=== PATIENT | female | born 1935 | race African-American/Black ===

== ENCOUNTER 2017-05-26 15:12 | Inpatient (IN) | payer MEDICARE, MEDICAID ==
[~2017-05-26] VITALS: Ht 165.1 cm; Wt 75.7 kg
[2017-05-26] MEDS ORDERED: LEVE500T19 PO (15:17)
[2017-05-26] MEDS ORDERED: KEPP500 PO (15:17)
[2017-05-26] MEDS ORDERED: METF500T4 PO (15:17)
[2017-05-26] MEDS ORDERED: CARV3.1242 PO (15:17)
[2017-05-26] MEDS ORDERED: HYDR12.529 PO (15:17)
[2017-05-26] MEDS ORDERED: AMLO10TA80 PO (15:17)
[2017-05-26 16:22] LABS: BASOPHILS % 0.8 % (0.0-2.0); EOSINOPHILS % 3.2 % (0.0-5.0); HEMATOCRIT. 27.6 % (36.0-48.0); HEMOGLOBIN. 8.8 g/dL (12.0-16.0); LYMPHOCYTES % 20.1 % (20.0-50.0); MEAN CORPUSCULAR VOLUME 78.1 fL (81.0-99.0); MEAN PLATELET VOLUME 7.5 fl (7.4-10.4); MONOCYTES % 5.4 % (2.0-8.0); NEUTROPHILS % 70.5 % (40.0-76.0); PLATELET 246 x1000/uL (130-400); RED BLOOD CELL COUNT 3.53 mill/uL (4.2-5.4)
[2017-05-26 16:27] LABS: CHLORIDE 112 mEq/L (98-107); INR 1.1; PROTHROMBIN TIME 11.9 sec (9.4-11.6)
[2017-05-26 16:33] LABS: CARBON DIOXIDE 26 mEq/L (21-32); ETHANOL BLOOD < 10 mg/dL
[2017-05-26 16:36] LABS: TROPONIN I < 0.02 ng/mL (0.00-0.04)
[2017-05-26 18:00] LABS: CLARITY URINE CLEAR (CLEAR); COLOR URINE YELLOW (YELLOW); GLUCOSE URINE NEGATIVE (NEGATIVE); KETONES URINE NEGATIVE (NEGATIVE); LEUKOCYTE ESTERASE URINE NEGATIVE (NEGATIVE); NITRITE URINE POSITIVE (NEGATIVE); OCCULT BLOOD URINE NEGATIVE (NEGATIVE); PH URINE 5.5 (4.5-8.0); PROTEIN URINE NEGATIVE (NEGATIVE); SPECIFIC GRAVITY URINE 1.014 (1.005-1.030); UROBILINOGEN URINE 0.2 E.U./dL (0.2-1.0)
[2017-05-26 18:13] LABS: *AMPHETAMINES SCREEN URINE NEGATIVE (NEGATIVE); *BARBITURATES SCREEN URINE NEGATIVE (NEGATIVE); *BENZODIAZEPINES SCREEN URINE PRESUMTIVE POSITIVE (NEGATIVE); *COCAINE SCREEN URINE NEGATIVE (NEGATIVE); CANNABINOID URINE SCREEN NEGATIVE (NEGATIVE); METHADONE URINE SCREEN NEGATIVE (NEGATIVE); OPIATES URINE SCREEN NEGATIVE (NEGATIVE); PHENCYCLIDINE URINE SCREEN NEGATIVE (NEGATIVE)
[2017-05-26] MEDS ORDERED: HYDRALAZINE 20MG/ML VIAL IV ONE (20:15)
[2017-05-26 21:15] VITALS: BP 183/96
[2017-05-26 22:30] VITALS: BP_SYST 154; BP_SYST 181; BP_DIAS 81; BP_DIAS 96
[2017-05-26] MEDS: LORAZEPAM 2MG/ML CPJ IV PRN (22:37)
[2017-05-27] VITALS: BP 144/75
[2017-05-27] MEDS ORDERED: ONDANSETRON HCL 4MG/2ML VIAL IV PRN
[2017-05-27] MEDS ORDERED: CLONIDINE 0.1MG TABLET PO PRN
[2017-05-27] MEDS ORDERED: DEXTROSE 50% WATER 50ML SYRINGE IV PRN (00:15)
[2017-05-27] MEDS: SODIUM CHLORIDE 0.9% 1,000 ML IV SCH (02:16)
[2017-05-27 04:00] VITALS: BP 154/75
[2017-05-27 06:09] LABS: BASOPHILS % 0.6 % (0.0-2.0); EOSINOPHILS % 3.3 % (0.0-5.0); HEMATOCRIT. 30.8 % (36.0-48.0); HEMOGLOBIN. 9.7 g/dL (12.0-16.0); LYMPHOCYTES % 28.7 % (20.0-50.0); MEAN CORPUSCULAR VOLUME 79.2 fL (81.0-99.0); MEAN PLATELET VOLUME 8.2 fl (7.4-10.4); MONOCYTES % 9.1 % (2.0-8.0); NEUTROPHILS % 58.3 % (40.0-76.0); PLATELET 234 x1000/uL (130-400); RED BLOOD CELL COUNT 3.89 mill/uL (4.2-5.4); RED CELL DISTRIBUTION WIDTH 16.9 % (11.6-14.6)
[2017-05-27 06:21] LABS: CARBON DIOXIDE 25 mEq/L (21-32); CHLORIDE 111 mEq/L (98-107)
[2017-05-27] MEDS: BLOOD SUGAR DIAGNOSTIC STRIP TEST SCH ×4 (07:11→23:25)
[2017-05-27 08:00] VITALS: BP 178/73
[2017-05-27] MEDS: INSULIN LISPRO 100 UNITS/ML SUBCUT SCH ×4 (08:10→21:00)
[2017-05-27] MEDS ORDERED: LEVETIRACETAM 500MG TABLET PO SCH (09:00)
[2017-05-27] MEDS: AMLODIPINE 10MG TABLET PO SCH (09:20)
[2017-05-27 12:00] VITALS: BP 170/82
[2017-05-27] MEDS: LAMOTRIGINE 25MG TABLET PO SCH (15:33)
[2017-05-27 16:00] VITALS: BP 154/92
[2017-05-27 20:00] VITALS: BP 174/91
[2017-05-27] MEDS: LEVETIRACETAM 500MG TABLET PO SCH (21:02)
[2017-05-27] MEDS: ACETAMINOPHEN 325MG TABLET PO PRN (21:03)
[2017-05-28] VITALS (7 sets, daily range): BP systolic 100–151; BP diastolic 52–70
[2017-05-28] MEDS: SODIUM CHLORIDE 0.9% 1,000 ML IV SCH ×2 (02:00→15:43)
[2017-05-28] MEDS: BLOOD SUGAR DIAGNOSTIC STRIP TEST SCH ×4 (06:12→21:21)
[2017-05-28] MEDS: INSULIN LISPRO 100 UNITS/ML SUBCUT SCH ×4 (07:49→21:00)
[2017-05-28] MEDS: LEVETIRACETAM 500MG TABLET PO SCH ×2 (08:46→21:35)
[2017-05-28] MEDS: LAMOTRIGINE 25MG TABLET PO SCH (08:46)
[2017-05-28] MEDS: AMLODIPINE 10MG TABLET PO SCH (08:46)
[2017-05-28] MEDS: ACETAMINOPHEN 325MG TABLET PO PRN ×2 (10:10→15:43)
[2017-05-28] MEDS ORDERED: POTASSIUM CHLORIDE 20MEQ TABLET SR PO NR (11:45)
[2017-05-28] MEDS: LORAZEPAM 2MG/ML CPJ IV PRN (23:06)
[2017-05-29] VITALS: BP 124/63
[2017-05-29 04:00] VITALS: BP 132/67
[2017-05-29] MEDS: SODIUM CHLORIDE 0.9% 1,000 ML IV SCH (06:56)
[2017-05-29] MEDS: BLOOD SUGAR DIAGNOSTIC STRIP TEST SCH ×2 (07:40→12:40)
[2017-05-29 08:00] VITALS: BP 151/63
[2017-05-29] MEDS: INSULIN LISPRO 100 UNITS/ML SUBCUT SCH ×2 (08:10→13:10)
[2017-05-29] MEDS: LEVETIRACETAM 500MG TABLET PO SCH (08:39)
[2017-05-29] MEDS: LAMOTRIGINE 25MG TABLET PO SCH (08:39)
[2017-05-29] MEDS: AMLODIPINE 10MG TABLET PO SCH (08:39)
[2017-05-29 12:00] VITALS: BP 127/55
[2017-05-29] MEDS: ACETAMINOPHEN 325MG TABLET PO PRN (12:13)
[2017-05-29 16:00] VITALS: BP 141/75
[2017-05-30] MEDS ORDERED: LAMOTRIGINE 25MG TABLET PO SCH (09:00)
== END 2017-05-29 20:05 | disposition home health service (06) | DRG 53 ==
LOC: ER 15:44 → 7WST 15:52 → EDBEDREQ 18:50 → ENRESERV 19:00
PROVIDERS: ADMIT Hospitalist; ATTEND Hospitalist
DX: G40.804 Other epilepsy, intractable, without status epilepticus (principal); E44.0 Moderate protein-calorie malnutrition; E87.5 Hyperkalemia; E11.9 Type 2 diabetes mellitus without complications; I10 Essential (primary) hypertension; D64.9 Anemia, unspecified; E87.6 Hypokalemia; Z86.73 Personal history of transient ischemic attack (TIA), and cerebral infarction without residual deficits; Z88.0 Allergy status to penicillin; Z79.899 Other long term (current) drug therapy; Z68.27 Body mass index [BMI] 27.0-27.9, adult
CPT/HCPCS: 36415; 70450; 71010; 80048; 80053; 80061; 80305; 81001; 82962; 83880; 84443; 84484; 85025; 85610; 93005; 96374; 96375; 97110; 97163; 97530; 99285; G0482; J0360; J2060; J7030; A4315